=== PATIENT | female | born 1950 | race Caucasian/White ===

== ENCOUNTER → 2023-12-09 08:00 | Outpatient (REF) | payer OTHER, SELFPAY | LOC: DHCBC/DCA 08:00 | PROVIDERS: ATTENDING PHYSICIAN Internal Medicine Interventional Cardiology; FAMILY PHYSICIAN Family Medicine | DX: R07.89 Other chest pain (principal); R07.9 Chest pain, unspecified; I25.10 Atherosclerotic heart disease of native coronary artery without angina pectoris | CPT/HCPCS: 78452; 93017; A9500 ==

== ENCOUNTER → 2024-09-26 09:07 | Outpatient (REF) | payer OTHER, SELFPAY ==
[2024-09-26 12:25] LABS: HDL Cholesterol 61 mg/dl; LDL Cholesterol, Calculated 62 mg/dl; Total Cholesterol 144 mg/dl (50-199); Triglyceride 109 mg/dl (10-149); Very Low Density Lipoprotein 21 mg/dl (0-30)
[2024-09-26 12:48] LABS: Glycohemoglobin (HgbA1c) 5.9 % (4.0-5.6)
== END ==
LOC: HWLAB 09:07
PROVIDERS: ATTENDING PHYSICIAN Internal Medicine Interventional Cardiology; FAMILY PHYSICIAN Family Medicine
DX: E78.2 Mixed hyperlipidemia (principal); R73.09 Other abnormal glucose
CPT/HCPCS: 36415; 80061; 83036

== ENCOUNTER → 2024-10-04 09:15 | Outpatient (REF) | payer OTHER, SELFPAY | LOC: HWRCS 09:15 | PROVIDERS: ATTENDING PHYSICIAN Internal Medicine Interventional Cardiology; FAMILY PHYSICIAN Family Medicine | DX: R07.89 Other chest pain (principal) | CPT/HCPCS: 93306 ==